=== PATIENT | female | born 1965 | race Caucasian/White ===

== ENCOUNTER 2020-11-27 19:04 | Emergency (ER) | payer OTHER ==
[~2020-11-27] VITALS: Ht 177.8 cm; Wt 76.2 kg
[2020-11-27 19:38] LABS: *BILIRUBIN,URIN NEGATIVE (NEGATIVE); *CLARITY,URINE CLEAR (CLEAR); *COLOR,URINE YELLOW (YELLOW); *KETONES,URINE 1+ (NEGATIVE); *UROBILINOGEN,URINE 0.2 E.U./dl (NORMAL); LEUKOCYTE ESTERASE ,URINE 1+ (NEGATIVE); NITRITE, URINE NEGATIVE (NEGATIVE); PH,URINE 6.5 (5.0-8.0); UGLUCOSE NEGATIVE (NEGATIVE)
[2020-11-27 19:39] LABS: *BLOOD, URINE TRACE (NEGATIVE)
[2020-11-27 19:46] LABS: BACTERIA,URINE FEW /HPF (NONE SEEN); SQUAMOUS EPITHELIAL CELL,UR MODERATE /HPF (NONE SEEN); WBC,URINE 80-100 /HPF (0-3)
[2020-11-27 19:47] LABS: MUCUS,URINE FEW /LPF (0-FEW); URINE AMORPHOUS URATE FEW /HPF
--- NOTE | 2020-11-27 19:52 | NUR ---
PATIENT ARRIVE AT THE ER WITH C/O BACK PAIN RADIATING TO RLQ ABDOMINAL THAT STARTED 3 DAYS AGO AND DYSURIA, CHILLS, FEVER 2 DAYS AGO. PATIENT STATES SHE HAD FEVER OF 103.0.
--- NOTE | 2020-11-27 19:56 | NUR ---
Dr. Yates at bedside for MSE.
[2020-11-27] MEDS ORDERED: IV NORMAL SALINE 1000 ML BAG IV ONE (20:15)
[2020-11-27] MEDS ORDERED: CEFTRIAXONE 1 G in IV DEXTROSE 5% 50 ML IV ONE (20:15)
[2020-11-27 20:37] LABS: HEMATOCRIT 34.9 % (31.2-41.9); MEAN CORPUSCULAR HEMOGLOBIN 31.2 uug (24.7-32.8); MEAN CORPUSCULAR VOLUME 91.6 fL (75.5-95.3); PLATELET COUNT (AUTO) 237 K/uL (179-408)
[2020-11-27 20:40] LABS: CREATININE 1.1 mg/dL (0.6-1.3); POTASSIUM 3.6 mmol/L (3.5-5.1)
[2020-11-27] MEDS ORDERED: CEFTRIAXONE /D5W 50ML IVPB **ER PYXIS IV ONE (20:41)
[2020-11-27 20:46] LABS: BILIRUBIN,DIRECT 0.1 mg/dL (0.0-0.2); BILIRUBIN,TOTAL 0.3 mg/dL (0.2-1.0); TOTAL PROTEIN, SERUM 6.1 g/dL (6.4-8.2)
[2020-11-27] MEDS ORDERED: CIPR-262 PO (21:41)
[2020-11-27] MEDS ORDERED: OXYC-128 PO (21:41)
[2020-11-27] MEDS ORDERED: CIPROFLOXACIN HCL 250 MG TABLET PO ONE (22:15)
[2020-11-27 22:19] VITALS: BP 108/58
--- NOTE | 2020-11-27 22:19 | NUR ---
Patient discharged to home in stable condition. Written and verbal after care instructions given. Patient verbalizes understanding of instructions. Stressed follow up or return to ER for worsening s/s. All belongings with patient.
[2020-11-27] MEDS ORDERED: CIPROFLOXACIN HCL 250 MG TABLET ONE (22:21)
== END 2020-11-27 22:20 | disposition home or self-care (01) ==
LOC: ER 19:15
DX: N12 Tubulo-interstitial nephritis, not specified as acute or chronic (principal); R94.31 Abnormal electrocardiogram [ECG] [EKG]
CPT/HCPCS: 80048; 80076; 81001; 83605; 84484; 85025; 87040 ×2; 87086; 93005; 96365; 99285; J0696; 36415; 70030-TC; A4663; J7030